=== PATIENT | female | born 1990 | race Asian ===

== ENCOUNTER 2019-03-31 10:51 | Inpatient (IN) | payer OTHER ==
[~2019-03-31] VITALS: Ht 170.2 cm; Wt 74.8 kg
[2019-03-31] MEDS ORDERED: HYDROCORTISONE 0.5%, 28.35 GM TOPICAL CREAM TP ONE (10:52)
[2019-03-31] MEDS ORDERED: LR 1,000 ML IV SCH (11:28)
[2019-03-31] MEDS ORDERED: LR 1,000 ML IV ONE (11:28)
[2019-03-31] MEDS ORDERED: OXYTOCIN/0.9 % SODIUM CHLORIDE 1,000 ML IV SCH (11:28)
[2019-03-31] MEDS ORDERED: NALBUPHINE HCL 10 MG/ML AMP IVP PRN (11:30)
[2019-03-31] MEDS ORDERED: TERBUTALINE SULFATE 1 MG/ML VIAL SUBCUT ONE (11:30)
[2019-03-31 11:55] LABS: BASOPHILS # (AUTO) 0.1 K/uL (0.0-0.2); BASOPHILS % (AUTO) 0.6 % (0.0-2.0); EOSINOPHILS % (AUTO) 0.2 % (0.0-4.0); HEMATOCRIT 39.9 % (36-48); HEMOGLOBIN 13.7 g/dL (12.0-16.0); LYMPHOCYTES # (AUTO) 1.7 K/uL (1.0-5.5); LYMPHOCYTES % (AUTO) 16.1 % (20.5-51.5); MEAN CORPUSCULAR HEMOGLOBIN 33 pg (27-31); MEAN CORPUSCULAR HGB CONC 34 % (32-36); MEAN CORPUSCULAR VOLUME 96 fL (79.0-98.0); MONOCYTES # (AUTO) 0.5 K/uL (0.0-1.0); MONOCYTES % (AUTO) 5.1 % (1.7-9.3); NEUTROPHILS # (AUTO) 8.1 K/uL (1.8-7.7); PLATELET COUNT (AUTO) 161 K/uL (130-430); RED BLOOD CELL COUNT(AUTO) 4.14 MIL/uL (4.2-6.2); RED CELL DISTRIBUTION WIDTH 13.1 % (9.0-15.0); WHITE BLOOD COUNT (AUTO) 10.3 K/uL (4.8-10.8)
[2019-03-31] MEDS ORDERED: LR 500 ML IV ONE (13:31)
[2019-03-31] MEDS ORDERED: FENT2mCg/mL-ROPIVA0.2%/NS EPID 200 ML EP SCH (13:45)
[2019-03-31] MEDS ORDERED: OXYTOCIN 10 UNIT/ML VIAL IM ONE (17:51)
[2019-03-31] MEDS ORDERED: OXYTOCIN 10 UNIT/ML VIAL ONE (17:57)
[2019-03-31] MEDS ORDERED: OXYTOCIN/0.9 % SODIUM CHLORIDE 1,000 ML IV ONE (18:04)
[2019-03-31] MEDS ORDERED: WITCH HAZEL LEAF 1 MED.PAD MED.PAD TP PRN (18:15)
[2019-03-31] MEDS ORDERED: LANOLIN 7 GM OINT. TP PRN (18:15)
[2019-03-31] MEDS ORDERED: DIPH-TET-PERTUS Vaccine 0.5 ML VIAL (ADACEL) I.M. PRN (18:15)
[2019-03-31] MEDS ORDERED: DOCUSATE SODIUM 100 MG CAPSULE PO PRN (18:15)
[2019-03-31] MEDS ORDERED: DERMOPLAST SPRAY TP PRN (18:15)
[2019-03-31] MEDS ORDERED: OXYCODONE/ACETAMINOPHEN 5-325 TABLET PO PRN ×2 (18:15)
[2019-03-31] MEDS ORDERED: HYDROCORTISONE 0.5%, 28.35 GM TOPICAL CREAM TP PRN (18:15)
[2019-03-31] MEDS ORDERED: TEMAZEPAM 15 MG CAPSULE PO PRN (21:00)
[2019-03-31 21:26] VITALS: BP_SYST 110
[2019-03-31] MEDS: IBUPROFEN 600 MG TABLET PO SCH (23:40)
[2019-04-01] MEDS: HYDROcodone/ACETAMIN 5-325 MG TAB (NORCO/ VICODIN) PO PRN ×2 (01:40→05:30)
[2019-04-01] MEDS: IBUPROFEN 600 MG TABLET PO SCH ×4 (05:30→23:40)
[2019-04-01 06:36] LABS: HEMATOCRIT 30.9 % (36-48); HEMOGLOBIN 10.7 g/dL (12.0-16.0)
[2019-04-01] MEDS ORDERED: FLU VACC QS2019-20 36MOS UP/PF 60 MCG/0.5 ML SYRINGE I.M. PRN (09:00)
[2019-04-01] MEDS ORDERED: fentaNYL CITRATE/PF 100 MCG/2 ML AMP ONE (16:17)
[2019-04-01] MEDS ORDERED: ROPIVACAINE HCL/PF 0.2% 200 ML ONE (16:17)
[2019-04-02] MEDS: HYDROcodone/ACETAMIN 5-325 MG TAB (NORCO/ VICODIN) PO PRN (01:33)
[2019-04-02] MEDS: IBUPROFEN 600 MG TABLET PO SCH ×2 (05:30→12:16)
== END 2019-04-02 14:05 | disposition home or self-care (01) | DRG 806 ==
LOC: OBSVTOIN 10:51 → SPU 10:51
PROVIDERS: ADMIT Obstetrics & Gynecology; ATTEND Obstetrics & Gynecology
PROC: 10E0XZZ Delivery of Products of Conception, External Approach (ICD-10-PCS; principal; 2019-03-31)
PROC: 0W8NXZZ Division of Female Perineum, External Approach (ICD-10-PCS; 2019-03-31)
PROC: 3E0R3BZ Introduction of Anesthetic Agent into Spinal Canal, Percutaneous Approach (ICD-10-PCS; 2019-03-31)
PROC: 00HU33Z Insertion of Infusion Device into Spinal Canal, Percutaneous Approach (ICD-10-PCS; 2019-03-31)
DX: O69.81X0 Labor and delivery complicated by cord around neck, without compression, not applicable or unspecified (principal); R71.0 Precipitous drop in hematocrit; Z37.0 Single live birth; Z3A.39 39 weeks gestation of pregnancy
CPT/HCPCS: 36415; 81002-TC; 85018-TC; 85025; 86592; 86886; 86900; 86901; 90715; J2590; J3010; J7120